=== PATIENT | male | born 1990 | race Hispanic/Latino ===

== ENCOUNTER 2021-06-23 04:57 | Emergency (ER) | payer SELFPAY ==
[2021-06-23 07:42] LABS: Basophils # (Auto) 0.1 K/mm3 (0.0-0.1); Basophils % (Auto) 0.8 % (0.0-1.8); Eosinophils # (Auto) 0.5 K/mm3 (0.0-0.4); Eosinophils % (Auto) 4.8 % (0.0-4.3); Hematocrit 38.3 % (35.5-45.6); Lymphocytes # (Auto) 1.4 K/mm3 (1.2-5.4); Lymphocytes % (Auto) 13.1 % (13.4-35.0); Mean Corpuscular HGB Conc 34 % (32-34); Mean Corpuscular Volume 91 fl (84-94); Monocytes # (Auto) 0.8 K/mm3 (0.0-0.8); Monocytes % (Auto) 7.4 % (0.0-7.3); Platelet Count 257 K/mm3 (140-440); Red Blood Count 4.19 M/mm3 (3.65-5.03); Red Cell Distribution Width 12.6 % (13.2-15.2)
[2021-06-23 08:12] LABS: Alanine Aminotransferase 12 units/L (7-56); Albumin 4.1 g/dL (3.9-5); BUN/Creatinine Ratio 28; Blood Urea Nitrogen 25 mg/dL (9-20); Hemolysis Index 13
[2021-06-23 08:13] LABS: Alanine Aminotransferase 12 units/L (7-56); Albumin 4.1 g/dL (3.9-5)
--- NOTE | 2021-06-23 08:13 | Emergency Department Report ---
History of Present Illness - General Chief Complaint: Altered Mental Status Stated Complaint: OVERDOSE Time Seen by Provider: 06/23/21 06:35 Source: EMS Mode of arrival: Stretcher Limitations: No Limitations - History of Present Illness Initial Comments: 31-year-old male with a past medical history of heroin abuse presents to the hospital with heroin overdose. Patient was brought in by a friend who provided 4 mg of intranasal Narcan with improvement in patient's respiratory status. At time of my evaluation patient is sleeping and drowsy but easily arousable and admits to accidental heroin overdose. Patient inhales heroin. He denies intentional overdose, other substance abuse, or physical pain or discomfort. - Related Data Previous Rx's Medication Instructions Recorded Last Taken Type Naloxone HCl [Narcan Nasal [place]] 4 mg NS ONCE PRN #1 spray 06/23/21 Unknown Rx Allergies Allergy/AdvReac Type Severity Reaction Status Date / Time No Known Allergies Allergy Verified 06/23/21 08:20 ED Review of Systems ROS: Stated complaint: OVERDOSE Other details as noted in HPI Comment: All other systems reviewed and negative ED Past Medical Hx - Social History Smoking Status: Current Every Day Smoker - Medications Home Medications: Home Medications Medication Instructions Recorded Confirmed Last Taken Type Naloxone HCl [Narcan Nasal [place]] 4 mg NS ONCE PRN #1 spray 06/23/21 Unknown Rx ED Physical Exam - General Limitations: Altered Mental Status - Other Other exam information: General: No acute distress Head: Atraumatic Eyes: normal appearance ENT: Moist mucous membranes Neck: Normal appearance, no midline tenderness Chest: Clear to auscultation bilaterally CV: Regular rate and rhythm Abdomen: Soft, normal bowel sounds, nontender, nondistended, no rebound or guarding Back: Normal inspection Extremity: Normal inspection, full range of motion Neuro: Drowsy but easily aroused O x 3, no facial asymmetry, speech clear, no gross motor sensory deficit Psych: Appropriate behavior Skin: No rash ED Course Vital Signs 06/23/21 06/23/21 06/23/21 06:37 06:43 06:45 Temperature 98.1 F Pulse Rate 96 H 92 H Respiratory 15 18 14 Rate Blood Pressure 101/62 101/62 Blood Pressure 101/62 [Left] O2 Sat by Pulse 98 88 98 Oximetry 06/23/21 06/23/21 06/23/21 07:15 07:45 08:01 Temperature Pulse Rate 89 81 84 Respiratory 17 17 17 Rate Blood Pressure 104/68 99/66 100/55 Blood Pressure [Left] O2 Sat by Pulse 98 99 99 Oximetry 06/23/21 06/23/21 06/23/21 08:31 09:15 09:47 Temperature Pulse Rate 76 74 Respiratory 14 16 Rate Blood Pressure 102/61 96/55 Blood Pressure [Left] O2 Sat by Pulse 99 99 100 Oximetry - Reevaluation(s) Reevaluation #1: 06/23/21 11:33 Patient now awake, alert, ambulating throughout the department and requesting to go outside to smoke. He is stable for discharge ED Medical Decision Making - Lab Data Result diagrams: 06/23/21 07:03 06/23/21 07:03 Lab Results 06/23/21 06/23/21 06/23/21 Range/Units 07:03 07:03 07:03 WBC 10.4 (4.5-11.0) K/mm3 RBC 4.19 (3.65-5.03) M/mm3 Hgb 13.0 (11.8-15.2) gm/dl Hct 38.3 (35.5-45.6) % MCV 91 (84-94) fl MCH 31 (28-32) pg MCHC 34 (32-34) % RDW 12.6 L (13.2-15.2) % Plt Count 257 (140-440) K/mm3 Lymph % (Auto) 13.1 L (13.4-35.0) % [place] % (Auto) 7.4 H (0.0-7.3) % Eos % (Auto) 4.8 H (0.0-4.3) % Baso % (Auto) 0.8 (0.0-1.8) % Lymph # (Auto) 1.4 (1.2-5.4) K/mm3 [place] # (Auto) 0.8 (0.0-0.8) K/mm3 Eos # (Auto) 0.5 H (0.0-0.4) K/mm3 Baso # (Auto) 0.1 (0.0-0.1) K/mm3 Seg Neutrophils % 73.9 H (40.0-70.0) % Seg Neutrophils # 7.7 (1.8-7.7) K/mm3 Sodium 138 (137-145) mmol/L Potassium 4.3 (3.6-5.0) mmol/L Chloride 104.8 (98-107) mmol/L Carbon Dioxide 24 (22-30) mmol/L Anion Gap 14 mmol/L BUN 25 H (9-20) mg/dL Creatinine 0.9 (0.8-1.3) mg/dL Estimated GFR > 60 ml/min BUN/Creatinine Ratio 28 % Glucose 121 H (75-100) mg/dL Calcium 9.0 (8.4-10.2) mg/dL Total Bilirubin 0.20 (0.1-1.2) mg/dL Direct Bilirubin (0-0.2) mg/dL Indirect Bilirubin mg/dL AST 17 (5-40) units/L ALT 12 (7-56) units/L Alkaline Phosphatase 65 (35-129) units/L Ammonia (25-60) umol/L Total Protein 6.1 L (6.3-8.2) g/dL Albumin 4.1 (3.9-5) g/dL Albumin/Globulin Ratio 2.1 % Plasma/Serum Alcohol < 0.01 (0-0.07) % 06/23/21 06/23/21 Range/Units 07:03 07:03 WBC (4.5-11.0) K/mm3 RBC (3.65-5.03) M/mm3 Hgb (11.8-15.2) gm/dl Hct (35.5-45.6) % MCV (84-94) fl MCH (28-32) pg MCHC (32-34) % RDW (13.2-15.2) % Plt Count (140-440) K/mm3 Lymph % (Auto) (13.4-35.0) % [place] % (Auto) (0.0-7.3) % Eos % (Auto) (0.0-4.3) % Baso % (Auto) (0.0-1.8) % Lymph # (Auto) (1.2-5.4) K/mm3 [place] # (Auto) (0.0-0.8) K/mm3 Eos # (Auto) (0.0-0.4) K/mm3 Baso # (Auto) (0.0-0.1) K/mm3 Seg Neutrophils % (40.0-70.0) % Seg Neutrophils # (1.8-7.7) K/mm3 Sodium (137-145) mmol/L Potassium (3.6-5.0) mmol/L Chloride (98-107) mmol/L Carbon Dioxide (22-30) mmol/L Anion Gap mmol/L BUN (9-20) mg/dL Creatinine (0.8-1.3) mg/dL Estimated GFR ml/min BUN/Creatinine Ratio % Glucose (75-100) mg/dL Calcium (8.4-10.2) mg/dL Total Bilirubin 0.20 (0.1-1.2) mg/dL Direct Bilirubin < 0.2 (0-0.2) mg/dL Indirect Bilirubin 0.0 mg/dL AST 18 (5-40) units/L ALT 12 (7-56) units/L Alkaline Phosphatase 63 (35-129) units/L Ammonia 31.0 (25-60) umol/L Total Protein 6.0 L (6.3-8.2) g/dL Albumin 4.1 (3.9-5) g/dL Albumin/Globulin Ratio 2.2 % Plasma/Serum Alcohol (0-0.07) % - EKG Data -: EKG Interpreted by Me EKG shows normal: sinus rhythm, intervals (QTC 445), QRS complexes (QRS duration 82), ST-T waves (No STEMI) Rate: normal (93) - Medical Decision Making 31-year-old male with history of heroin abuse presents after heroin overdose. Observed in the ED for several hours until awake and at baseline mental status. He did not require additional Narcan during ED stay. He will be discharged with substance abuse treatment resources and intranasal Narcan prescription Critical Care Time: No Critical care attestation.: If time is entered above; I have spent that time in minutes in the direct care of this critically ill patient, excluding procedure time. ED Disposition Clinical Impression: Heroin overdose Disposition: HOME / SELF CARE / HOMELESS Is pt being admited?: No Does the pt Need Aspirin: No Condition: Stable Instructions: Opioid Overdose Additional Instructions: Take the medication as prescribed. Follow-up with your doctor or doctor/clinic provided. Return if symptoms worsen as indicated by your discharge instructions. Professional and Agency Contacts To help [facility] (20/09) [place] Crisis Line: Suicide Prevention Line: Crisis Text Line: Text ``START to 051100 Emergency: 911 SUBSTANCE ABUSE PROGRAMS: [facility]: Location: [place], [place] Address: [address] [place] [address] [facility]: Address: [address] [place] [address] [facility]: Address: [address] [place] [address] [facility]: Address: [address] [place] [address] Prescriptions: Naloxone HCl [Narcan Nasal [place]] 4 mg NS ONCE PRN #1 spray PRN Reason: Opioid Reversal Referrals: PRIMARY CARE, [Primary Care Provider] - 3-5 Days [facility] [Provider Group] - 3-5 Days Time of Disposition: 11:36
[2021-06-23 08:15] LABS: Bilirubin,Direct < 0.2 mg/dL (0-0.2)
[2021-06-23] MEDS ORDERED: NALOXONE 0.4 MG/1 ML INJ IV PRN (08:30)
[2021-06-23 11:36] VITALS: BP 112/66
--- NOTE | 2021-06-24 17:54 | Electrocardiograph Report ---
[facility] Test Date: 2021-06-23 Test Time: 06:35:02 Pat Name: LUCIANA ROJAS Department: Room: Gender: M Demo Specialist: GALILEO AHUJA : 1990 Requested By: STACY MCCLELLAN Order Number: [id number] Reading MD: Prisca Ochoa Measurements Intervals [place] Rate: 93 P: 55 [place]: 177 QRS: 33 QRSD: 82 T: 26 QT: 357 QTc: 445 Interpretive Statements Sinus rhythm Probable left atrial enlargement No previous ECG available for comparison Electronically Signed On 06-24-2021 17:54:08 EDT by Prisca Ochoa
== END 2021-06-23 11:45 | disposition home or self-care (01) ==
LOC: ED 04:57
DX: T40.1X1A Poisoning by heroin, accidental (unintentional), initial encounter (principal); F17.200 Nicotine dependence, unspecified, uncomplicated; Z79.899 Other long term (current) drug therapy; Y92.89 Other specified places as the place of occurrence of the external cause
CPT/HCPCS: 36415; 80053; 80076; 80320; 82140; 85025; 93005; 99283; G0480

== ENCOUNTER 2021-08-10 18:24 | Emergency (ER) | payer OTHER ==
[2021-08-10 18:52] VITALS: BP 130/92
== END 2021-08-11 04:30 | disposition left against medical advice (07) ==
LOC: ED 18:24
DX: M54.50 Low back pain, unspecified (principal); Z53.21 Procedure and treatment not carried out due to patient leaving prior to being seen by health care provider